=== PATIENT | male | born 1950 | race Caucasian/White ===

== ENCOUNTER 2021-01-07 10:28 | Outpatient (CLI) | payer MEDICARE, SELFPAY ==
--- NOTE | ~2021-01-07 | MR_ITS ---
EXAMINATION: MR knee RT wo con DATE: 01/07/2021 11:49 INDICATION: Right knee pain TECHNIQUE: Magnetic resonance imaging (MRI) of the right knee was performed without intravenous contr ast. Sequences included coronal PD-weighted FSE, coronal PD-weighted FS FSE, sagittal T2-weighted FS E, sagittal PD-weighted FS FSE and axial PD weighted fat saturated FSE. COMPARISON: None. FINDINGS: Medial compartment: Complex medial meniscal tear with a dominant longitudinal horizontal tear plane extending to the infe rior articular surface along the inner third of the body and posterior horn. There is secondary teari ng with frayed irregular periods along the free edge of the lateral aspect of the posterior horn. The re is also appears be a small displaced meniscal flap extending inferiorly into the gutter along the posterior medial margin of the medial tibial plateau. Small region of deep chondral fissuring along t he lateral side of the central portion of the weightbearing medial femoral condyle. Lateral compartment: Tiny radial tear along the free edge at the posterior body of the lateral meniscus. Articular cartila ge is normal. Patellofemoral compartment: Until fissuring involving greater than 50% the cartilage thickness at the patellar apical ridge and a t the medial facet without definitive degenerative subchondral changes. Trochlear cartilage is normal . Ligaments and tendons: Anterior and posterior cruciate ligaments are normal. The fibular collateral ligament complex is norm al. Mild thickening and minimal increased signal of the proximal medial collateral ligament without s urrounding edema consistent with mild scarring related to chronic sprain. Mild distal quadriceps tend inopathy. Patellar tendon is normal. The visualized medial and lateral hamstring tendons as well as t he iliotibial band are normal. Fluid: Physiologic amount of fluid in the joint space. No loose osteochondral bodies identified. Osseous/other: Small low signal intensity bone island at the lateral femoral condyle. Normal marrow signal. No fract ure or pathologic marrow replacing process. IMPRESSION: 1. Complex tear of the body and posterior horn of the medial meniscus. 2. Tiny radial tear along the free edge of the posterior body of the lateral meniscus. 3. 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 4. Mild scarring consistent with chronic sprain of the proximal medial collateral ligament. Reviewed, dictated and finalized at location A. IMPRESSION: 1. Complex tear of the body and posterior horn of the medial meniscus. 2. Tiny radial tear along the free edge of the posterior body of the lateral me niscus. 3. 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 4. Mild scarring consistent with chronic sprain of the proximal medial collater al ligament.
== END 2021-01-07 10:29 | disposition home or self-care (01) ==
LOC: ANHIMG 10:32
PROVIDERS: PCP Family Medicine; Visit Provider Family Medicine
DX: M17.11 Unilateral primary osteoarthritis, right knee (principal); S83.231A Complex tear of medial meniscus, current injury, right knee, initial encounter; X58.XXXA Exposure to other specified factors, initial encounter
CPT/HCPCS: 73721

== ENCOUNTER 2021-07-03 12:03 | Outpatient (CLI) | payer MEDICARE, SELFPAY ==
[2021-07-03 12:30] LABS: Basophils Percent Auto 0.1 % (0.2-1.2); Eosinophils Percent Auto 0.5 % (0-4.4); Hematocrit 44.3 % (42.0-52.0); Hemoglobin 14.9 g/dL (14.0-18.0); Immature Granulocyte Absolute 0.03 K/mm3 (0.00-0.031); Immature Granulocyte Percent A 0.4 % (0-0.5); Lymphocytes Absolute Auto 1.54 K/mm3 (0.9-3.2); Lymphocytes Percent Auto 20.1 % (18.3-44.2); Mean Corpuscular HGB Conc 33.6 g/dl (32-36); Mean Platelet Volume 9.2 fl (7.4-10.4); Monocytes Absolute Auto 0.7 K/mm3 (0.1-0.6); Monocytes Percent Auto 9.1 % (2.6-8.5); Neutrophils Absolute Auto 5.4 K/mm3 (1.3-6.7); Neutrophils Percent Auto 69.8 % (45.5-73.1); Platelet Count Result 198 k/mm3 (150-375); Red Blood Count 4.52 M/mm3 (4.6-6.20); Red Cell Distribution Width 12.4 % (11.5-14.5); White Blood Count 7.7 K/mm3 (4.5-10.0)
[2021-07-03 12:42] LABS: Anion Gap 7 mmol/L (8-16); Blood Urea Nitrogen 25 mg/dL (9-20); Calcium 9.4 mg/dL (8.4-10.2); Carbon Dioxide 29 mmol/L (22-30); Chloride 101 mmol/L (98-107); Estimated Glomerular Filt Rate > 60; Glucose 119 mg/dL (65-110); Potassium 5.6 mmol/L (3.4-5.0); Sodium 137 mmol/L (137-145)
== END 2021-07-03 12:04 | disposition home or self-care (01) ==
LOC: ANHLAB 12:05
PROVIDERS: PCP Family Medicine; Visit Provider Nurse Practitioner Family
DX: R55 Syncope and collapse (principal)
CPT/HCPCS: 36415; 80048; 85025

== ENCOUNTER 2021-07-04 01:27 | Day surgery (SDC) | payer MEDICARE, SELFPAY ==
--- NOTE | 2021-06-20 14:47 | PC.NURSE ---
Report to the Outpatient Waiting Room, entrance under the green pavilion located off [facility], at time _0830 on date _07/04/21 . OR Time: _1030 . - You and your visitor will be asked a series of questions to screen for COVID 19 for your protection. - A mask is required within the hospital. Preoperative COVID Testing Requirements: No COVID Test needed if: (proof is required; if not received patient will have Rapid Test prior to entry) - Patient has received COVID Vaccine at least 14 days prior to procedure date or - Patient has positive COVID test result within last 90 days of surgery date. COVID Test needed if above criteria is not met If not COVID vaccinated a COVID test must be conducted within 72 hours of surgery and patient is asked to isolate self from time of testing until procedure. You will go to the [facility] for your COVID testing. The [facility] site is located at the corner of [address] [facility]. You will only be called if COVID results are positive and your surgeon may reschedule your elective surgery date. Patients may have clear liquids (water, carbonated beverages, clear teas, apple juice) until 3 hours prior to surgery with a maximum of 20 ounces. - No food from midnight until time of surgery - Infants may have breast milk until 4 hours before surgery, infant formula 6 hours prior to surgery. - Children will be allowed to drink immediately following surgery. If applicable, please bring a bottle or sippy cup to assist with drinking. Juice, water, soda, and popsicles are readily available. For infants on formula, please bring formula the day of surgery. Pacifiers are allowed. Take the following medications with a SIP of water the morning of surgery: ___NONE Medications to discontinue per physician ___MELOXICAM 7 DAYS PRE OP Date to take last dose_06/26/21 Please no make-up, nail mohawk, hairspray, perfume, deodorant, or body powder the day of surgery. No jewelry (including any body piercings) or valuables the day of surgery, leave them at home. Please take a shower or bath the night before, or the morning of, surgery with an antibacterial soap. Wear comfortable, loose fitting clothing. Children are encouraged to wear pajamas. - Jewelry must be removed prior to entering the operating room. Rings and piercings that are not removed may be cut off. - The hospital will not accept responsibility for valuables. - Please leave all valuables, including medications, at home the day of surgery. If you are going home after surgery, a licensed lumber stacker driver must drive you home. - NO public transportation without another adult. - We recommend that an adult stay with you for 24 hours following discharge. - We also recommend that you do not drive, make important decision, drink alcoholic beverages, or take any drugs that were not prescribed by your health care provider for at least 24 hours after your discharge time. For Pediatric surgeries, we recommend two adults accompany the child home (only one inside the building at this time). One visitor will be allowed to accompany the patient into the hospital. Patients visitor will be instructed to remain with patient at all times or leave the building. We will allow the visitor to come back to the postoperative area when patient is ready. Follow any additional instructions given to you from your surgeon. Telephone instructions given to __PATIENT and asked if any additional questions and then verbalized understanding. Patient advised to call surgeon office or pre surgery nurse liaison [phone] if any additional questions. Report to the Outpatient Waiting Room, entrance under the green pavilion located off [facility], at time on date . OR Time: . - You and your visitor will be asked a series of questions to scr
[2021-06-20 14:52] VITALS: BMI 23.1
--- NOTE | 2021-07-03 12:53 | WPDANESEPPF ---
Anes - Initial Pre Proc Eval Procedure: Operation Date: 07/04/21 10:30 Proposed Procedures p Right Knee Arthroscopic Partial Medial Meniscectomy - Greg Tom MD Date/Time: 07/03/21 12:53 Surgeon: Greg Tom MD Pre Op Diagnosis: medial & lateral meniscus tears right knee Patient Data Age: 71 Gender: M Height: 1.91 m Weight: 83.95 kg Allergies Allergy/AdvReac Type Severity Reaction Status Date / Time No Known Allergies Allergy Verified 07/03/21 10:35 Home Medications Medication Instructions Recorded Confirmed Type sildenafil 100 mg tablet 100 mg PO DAILY PRN #10 tablet 02/28/20 07/03/21 Rx meloxicam 15 mg tablet See Rx Instructions .ROUTE 05/01/21 07/03/21 Rx .COMPLEX #30 tablet cetirizine 10 mg tablet 10 mg PO DAILY PRN 05/03/21 07/03/21 History tramadol 50 mg tablet 50 mg PO Q6H PRN 07/03/21 07/03/21 History Patient hx anesthesia problems: none Family hx anesthesia problems: none Results Review: All pre-operative results and documents have been reviewed as part of the pre-operative evaluation. [facility] Past Medical History Medical History Abnormal MRI, knee BMI 23.0-23.9, adult Degenerative lumbar disc Erectile dysfunction Hand pain Hemorrhoids History of stress test (~1994) Left shoulder pain Right medial knee pain Screening for lipid disorders Screening for prostate cancer Skin lesions, generalized Tear of lateral meniscus of left knee, current Tear of medial meniscus of right knee, current Surgical History Surgical History H/O removal of cyst testicular cyst History of repair of left rotator cuff (~04/22/13) Family History Family History Father Family history of premature coronary heart disease Grandparent Carcinoma of colon Mother Congestive heart failure Other Cerebrovascular accident Social History Social History Alcohol intake: never Substance use: never Substance use type: does not use Living arrangements: with family Additional living arrangements comments: lives with Additional occupation/education comments: [employer] Spiritual care concerns: No Anes - Eval Final PreProcedure Day of Procedure 07/03/21 12:53 Patient weight: normal Heart: regular rate and rhythm Lungs: clear to auscultation and normal air movement Airway: Mallampati scale class II Neurological: alert and oriented Last oral intake: >/= 8 hours ASA classification: II Emergent: no Anesthetic plan: proceed Anesthesia type and monitoring: general LMA Results Review: All pre-operative results and documents have been reviewed as part of the pre-operative evaluation. Informed Consent: The patient's anesthetic plan and its attendant risks and benefits were discussed with the patient/family/POA. Questions were solicited and answers provided to the satisfaction of the patient/family/POA.
[2021-07-04] VITALS (10 sets, daily range): BP systolic 108–148; BP diastolic 68–94; PULSE 61–85; RESP 12–19; TEMP 36.3; O2SAT 98–100
[2021-07-04] MEDS: LACTATED RINGERS 1,000 ML 30 ML IV CONT (09:19)
[2021-07-04] MEDS: ACETAMINOPHEN 500 MG TABLET 1000 MG PO (09:19)
[2021-07-04] MEDS: KETOROLAC 15 MG/ML VIAL (*BKC) IV PUSH (09:20)
--- NOTE | 2021-07-04 10:25 | WPDHPUPDATE1 ---
History and Physical Update Update Date/Time: 07/04/21 10:25 Syncopal episode due to Tramadol and dehydration. EKG normal. History and Physical has been reviewed, including an updated exam of the patient. There are NO changes in the patient's condition. Risks, benefits, and alternatives have been discussed and questions answered. Patient agrees to proceed with procedure.
[2021-07-04] MEDS: ceFAZolin 2 GM/D5W 50 ML 2 GM/50 ML BAG IVPB (10:29)
[2021-07-04] MEDS: BUPIVACAINE/EPINEPHRINE 0.25% 10 ML VIAL 30 ML INFILTRATE (10:42)
--- NOTE | 2021-07-04 17:40 | W.PM.PROC2 ---
Procedure Note - Detailed Date of Procedure 07/04/21 Pre-op Diagnosis medial & lateral meniscus tears right knee Post-op Diagnosis Other (Medial meniscus tear, right knee.) Procedure Performed Arthroscopic partial medial meniscectomy Surgeon Greg Tom MD Multicraft Operator Mee Ruiz PA-C Anesthesia General Findings Mild degenerative changes primarily at the patellofemoral joint. Mild medial compartment disease. Extensive complex tearing of the meniscus with several loose flaps. The lateral meniscus appeared essentially normal. The lateral joint was also healthy despite some early degeneration on the tibia. Medial femur chondromalacia grade 1, medial tibia grade 1. Lateral femur chondromalacia grade 0, lateral tibia grade 1. Patellar grade 2/3, trochlea grade 2. Description of Procedure The patient was identified and the surgical site confirmed and signed in the preoperative holding area. Antibiotics were started per protocol. She was brought to the operative room and transferred to the OR table. A general anesthetic was administered. Supine position with the operative lower extremity position in the leg jeffries after placement of a well padded tourniquet. The leg support was lowered and the contralateral limb was supported with a soft bolster. The knee was prepped and draped in the usual sterile fashion. A time-out was performed. The portal sites were marked and infiltrated with 0.5% Marcaine 20 mL. The limb was exsanguinated and the tourniquet inflated to 300 mL Hg. Standard inferolateral and inferomedial portals were established. Inflow was obtained with the saline pump. The camera was introduced. Diagnostic inspection of the joint was accomplished. The meniscus was debrided with the arthroscopic shaver and punches until stable. The arthroscopic instruments were removed. The tourniquet released and wounds closed with subcutaneous 4-0 Monocryl absorbable suture. Steri strips and a sterile dressing were applied. A light elastic wrap was placed. The patient was extubated and brought to the recovery room in stable condition. Estimated Blood Loss 5 Tourniquet Time 12 Drains No Complications No immediate complications Condition Stable Disposition PACU [facility] Billing Surgery - Charge Forward: Surgery Billing
== END 2021-07-04 13:25 | disposition home or self-care (01) ==
PROVIDERS: PCP Family Medicine; Visit Provider Orthopaedic Surgery
PROC: (CPT 29870; principal; 2021-07-04 10:30)
DX: M23.331 Other meniscus derangements, other medial meniscus, right knee (principal); M94.261 Chondromalacia, right knee
CPT/HCPCS: 29881; A9270; J0690; J1100; J1885; J2405; J2704; J3010; J7120

== ENCOUNTER 2021-07-10 11:19 | Outpatient (CLI) | payer MEDICARE, SELFPAY ==
[2021-07-10 11:48] LABS: Anion Gap 3 mmol/L (8-16); Blood Urea Nitrogen 20 mg/dL (9-20); Calcium 9.1 mg/dL (8.4-10.2); Carbon Dioxide 31 mmol/L (22-30); Chloride 104 mmol/L (98-107); Estimated Glomerular Filt Rate > 60; Glucose 115 mg/dL (65-110); Potassium 4.5 mmol/L (3.4-5.0); Sodium 138 mmol/L (137-145)
== END 2021-07-10 11:20 | disposition home or self-care (01) ==
LOC: ANHLAB 11:21
PROVIDERS: PCP Family Medicine; Visit Provider Nurse Practitioner Family
DX: E87.5 Hyperkalemia (principal)
CPT/HCPCS: 36415; 80048

== ENCOUNTER 2022-01-16 08:21 | Emergency (ER) | payer MEDICARE, SELFPAY ==
--- NOTE | 2022-01-16 08:27 | ED.UPPEXIN ---
HPI - Extremity Injury (Upper) General Stated Complaint: left side pain chest/shoulder Related Data Home Medications Medication Instructions Recorded Confirmed cetirizine 10 mg tablet (Zyrtec) 10 mg PO DAILY PRN Allergy Symptoms 05/03/21 08/13/21 Allergies Allergy/AdvReac Type Severity Reaction Status Date / Time No Known Allergies Allergy Verified 08/12/21 12:02 [facility] Past Medical History Medical History Abnormal MRI, knee BMI 23.0-23.9, adult Degenerative lumbar disc Erectile dysfunction Hand pain Hemorrhoids History of stress test (~1994) Left shoulder pain Right medial knee pain Screening for lipid disorders Screening for prostate cancer Skin lesions, generalized Tear of lateral meniscus of left knee, current Tear of medial meniscus of right knee, current Surgical History Surgical History H/O removal of cyst testicular cyst History of repair of left rotator cuff (~04/22/13) Family History Family History Father Family history of premature coronary heart disease Grandparent Carcinoma of colon Mother Congestive heart failure Other Cerebrovascular accident Social History Social History Alcohol intake: never Substance use: never Substance use type: does not use Additional living arrangements comments: lives with Additional occupation/education comments: [employer] Spiritual care concerns: No Discharge Plan Discharge Prescriptions: No Action sildenafil 100 mg tablet 100 mg PO DAILY PRN (Reason: sexual activity) Qty: 10 0RF Rx Instructions: administer 30 minutes to 4 hours before activity cetirizine [Zyrtec] 10 mg tablet 10 mg PO DAILY PRN (Reason: Allergy Symptoms) meloxicam 15 mg tablet See Rx Instructions .ROUTE .COMPLEX Qty: 30 1RF Dose Instruction: TAKE 1 TABLET BY MOUTH EVERY DAY Rx Instructions: TAKE 1 TABLET BY MOUTH EVERY DAY Paxlovid (EUA) 300 mg (150 mg x 2)-100 mg tablets,dose pack See Rx Instructions PO .COMPLEX Qty: 30 0RF Rx Instructions: take TWO 150 mg tablets of nirmatrelvir with ONE 100 mg tablet of ritonavir twice daily for 5 days PO Follow-up/Referrals: Kayode Spence MD [Primary Care Provider] -
[2022-01-16 08:41] VITALS: BP 140/108; PULSE 67; RESP 16; TEMP 35.7; O2SAT 99
--- NOTE | 2022-01-16 08:42 | ECG_ITS ---
Measurements Intervals [place] Rate: 65 P: 71 MS: 185 QRS: 12 QRSD: 98 T: 50 QT: 396 QTc: 412 Interpretive Statements SINUS RHYTHM LOW QRS VOLTAGE IN PRECORDIAL LEADS BORDERLINE ECG COMPARED TO ECG 01/16/2022 08:39:16 NO SIGNIFICANT CHANGES Electronically Signed On 01-16-2022 11:57:56 METAL SMELTER by Juancarlos Graff D.O.
--- NOTE | 2022-01-16 08:53 | ED.CHESTPAIN ---
HPI - Chest Pain General Chief Complaint: Chest Pain Stated Complaint: left side pain chest/shoulder Time Seen by Provider: 01/16/22 08:55 Source: patient Mode of arrival: ambulatory Limitations: no limitations History of Present Illness HPI narrative: Clifford is a 71-year-old male patient presenting to clinic today with complaints of left-sided chest discomfort and left shoulder pain. He reports that he just had COVID on January 05. He denies any shortness of breath at this time. He denies any fever or chills. No cardiac history reported. States the pain is worse with movement of his left arm and taking a deep breath. He denies any injury Related Data Home Medications Medication Instructions Recorded Confirmed cetirizine 10 mg tablet (Zyrtec) 10 mg PO DAILY PRN Allergy Symptoms 05/03/21 08/13/21 Allergies Allergy/AdvReac Type Severity Reaction Status Date / Time No Known Allergies Allergy Verified 08/12/21 12:02 Review of Systems Review of Systems: Pertinent positives per HPI. Patient denies any fever, chills, rash, headache, visual changes, dizziness, cough, runny nose, sore throat, shortness of breath, palpitations, nausea, vomiting, diarrhea, constipation, abdominal pain, or any urinary issues. [facility] Past Medical History Medical History Abnormal MRI, knee BMI 23.0-23.9, adult Degenerative lumbar disc Erectile dysfunction Hand pain Hemorrhoids History of stress test (~1994) Left shoulder pain Right medial knee pain Screening for lipid disorders Screening for prostate cancer Skin lesions, generalized Tear of lateral meniscus of left knee, current Tear of medial meniscus of right knee, current Surgical History Surgical History H/O removal of cyst testicular cyst History of repair of left rotator cuff (~04/22/13) Family History Family History Father Family history of premature coronary heart disease Grandparent Carcinoma of colon Mother Congestive heart failure Other Cerebrovascular accident Social History Social History Alcohol intake: never Substance use: never Substance use type: does not use Additional living arrangements comments: lives with Additional occupation/education comments: mir Spiritual care concerns: No Comments At the time of my signature, I reviewed and agree with the nursing past medical, surgical, social, and family history. There is no relevant family history pertinent to the patient complaint. Exam Narrative: General: Well-developed, well nourished, in no apparent distress Head: Normocephalic, atraumatic. Chest: Mild tenderness to palpation over the left chest wall, pain worsens with movement of the left shoulder and taking a deep breath. Even rise and fall of chest wall, no bruising or swelling noted Cardio: Regular rate and rhythm, s1 and s2 normal, no murmur appreciated. Resp: Clear to auscultation bilaterally, no rhonchi, rales, wheezing or rubs. Extremities: No deformity, no edema, no cyanosis, capillary refill less than 2 seconds, peripheral pulses palpable and strong. Integumentary: [place], warm, and dry, intact without lesion, no rashes. Course Course Emergency Course: Portions of this record may have been created with voice recognition software. Level of Care: Express Care Visit Vital Signs Vital signs: Vital Signs Temperature 35.7 C L 01/16/22 08:41 Pulse Rate 67 01/16/22 08:41 Respiratory Rate 16 01/16/22 08:41 Blood Pressure 140/108 H 01/16/22 08:41 Pulse Oximetry 99 01/16/22 08:41 Oxygen Delivery Room Air 01/16/22 08:41 Temperature 35.7 C L 01/16/22 08:41 Pulse Rate 67 01/16/22 08:41 Respiratory Rate 16 01/16/22 08:41 Blood Pressu
== END 2022-01-16 09:02 | disposition short-term general hospital (02) ==
PROVIDERS: Emergency Provider Nurse Practitioner Family; PCP Family Medicine
DX: R07.89 Other chest pain (principal); M25.512 Pain in left shoulder; Z87.891 Personal history of nicotine dependence
CPT/HCPCS: 93005; 99213; G0463

== ENCOUNTER 2022-01-16 09:18 | Emergency (ER) | payer MEDICARE, SELFPAY ==
[2022-01-16] VITALS (11 sets, daily range): BP systolic 139–162; BP diastolic 74–88; PULSE 66–84; RESP 12–20; TEMP 36.6; O2SAT 96–100
--- NOTE | ~2022-01-16 | XR_ITS ---
EXAMINATION: XR chest 2V DATE: 01/16/2022 10:36 INDICATION: Left-sided chest pain TECHNIQUE: PA and lateral views of the chest are obtained. COMPARISON: 12/21/2012 FINDINGS: There are minimal airspace opacities of the left lower lobe. No pleural effusion or pneumot horax. The cardiomediastinal silhouette is normal. There is moderate thoracic spondylosis. IMPRESSION: 1. Minimal airspace opacity of the left lower lobe, consistent with atelectasis versus pneumonia. Reviewed, dictated and finalized at location B. CAL MANAGEMENT SPECIALIST
--- NOTE | 2022-01-16 09:31 | ECG_ITS ---
Measurements Intervals [place] Rate: 70 P: 43 SC: 172 QRS: 6 QRSD: 85 T: 48 QT: 386 QTc: 418 Interpretive Statements SINUS RHYTHM LOW QRS VOLTAGE IN PRECORDIAL LEADS BORDERLINE ECG NO PREVIOUS ECG AVAILABLE FOR COMPARISON Electronically Signed On 01-16-2022 11:56:45 INDUSTRIAL PSYCHOLOGY TEACHER by Juancarlos Graff D.O.
[2022-01-16 09:50] LABS: Basophils Percent Auto 0.1 % (0.2-1.2); Eosinophils Absolute Auto 0.2 K/mm3 (0-0.3); Eosinophils Percent Auto 2.6 % (0-4.4); Immature Granulocyte Absolute 0.02 K/mm3 (0.00-0.031); Immature Granulocyte Percent A 0.3 % (0-0.5); Lymphocytes Absolute Auto 2.18 K/mm3 (0.9-3.2); Lymphocytes Percent Auto 28.7 % (18.3-44.2); Mean Corpuscular HGB Conc 34.9 g/dl (32-36); Mean Corpuscular Hemoglobin 33.3 pg (26-34); Mean Corpuscular Volume 95.3 fl (80-100); Monocytes Absolute Auto 0.6 K/mm3 (0.1-0.6); Monocytes Percent Auto 8.3 % (2.6-8.5); Neutrophils Absolute Auto 4.6 K/mm3 (1.3-6.7); Platelet Count Result 227 k/mm3 (150-375); Red Blood Count 4.51 M/mm3 (4.6-6.20); Red Cell Distribution Width 12.3 % (11.5-14.5); White Blood Count 7.6 K/mm3 (4.5-10.0)
[2022-01-16 10:02] LABS: Partial Thromboplastin Time 28.7 SECONDS (22.3-36.8)
[2022-01-16 10:04] LABS: Alanine Aminotransferase 49 U/L (6-50); Albumin Level 4.6 g/dL (3.5-5.1); Alkaline Phosphatase 94 U/L (38-126); Anion Gap 14 mmol/L (8-16); Aspartate Amino Transferase 44 U/L (17-59); Bilirubin,Total 0.5 mg/dL (0.2-1.3); Blood Urea Nitrogen 20 mg/dL (9-20); Calcium 8.8 mg/dL (8.4-10.2); Carbon Dioxide 25 mmol/L (22-30); Chloride 102 mmol/L (98-107); Estimated CRCL calculation 76 ml/min; Estimated Glomerular Filt Rate > 60; Glucose 98 mg/dL (65-110); Lipase 66 U/L (23-300); Potassium 3.8 mmol/L (3.4-5.0); Sodium 141 mmol/L (137-145)
[2022-01-16 10:16] LABS: Troponin I < 0.012 ng/mL (0.000-0.034)
--- NOTE | 2022-01-16 11:22 | ED.CHESTPAIN ---
HPI - Chest Pain General Chief Complaint: Chest Pain Stated Complaint: cp Time Seen by Provider: 01/16/22 10:55 Source: patient History of Present Illness HPI narrative: Patient is 71 years old white male, drove himself to the emergency room, lives with his at home complaining of constant left upper chest and left upper back pain started 36 hours ago. Gets better laying down still, worse with stretching his neck or turning his neck to 1 side or the other, coughing and certain position. He denies any fever, chills, nausea, vomiting, shortness of breath or having similar symptoms. Patient tested positive for COVID on January 05 which is 12 days ago and he tested negative few days ago. Patient does not have any medical disease, does not take medicine at home, does not smoke or drink or uses drugs, on meloxicam for arthritis, father had a heart attack at 54 years old with comorbidities Related Data Home Medications Medication Instructions Recorded Confirmed cetirizine 10 mg tablet (Zyrtec) 10 mg PO DAILY PRN Allergy Symptoms 05/03/21 08/13/21 Allergies Allergy/AdvReac Type Severity Reaction Status Date / Time No Known Allergies Allergy Verified 01/16/22 09:31 Review of Systems Review of Systems: All systems reviewed & are unremarkable except as noted in HPI and below PMFSH Past Medical History Medical History Abnormal MRI, knee BMI 23.0-23.9, adult Degenerative lumbar disc Erectile dysfunction Hand pain Hemorrhoids History of stress test (~1994) Left shoulder pain Right medial knee pain Screening for lipid disorders Screening for prostate cancer Skin lesions, generalized Tear of lateral meniscus of left knee, current Tear of medial meniscus of right knee, current Surgical History Surgical History H/O removal of cyst testicular cyst History of repair of left rotator cuff (~04/22/13) Family History Family History Father Family history of premature coronary heart disease Grandparent Carcinoma of colon Mother Congestive heart failure Other Cerebrovascular accident Social History Social History Alcohol intake: never Substance use: never Substance use type: does not use Additional living arrangements comments: lives with Additional occupation/education comments: mir Spiritual care concerns: No Exam Narrative: General appearance: Well-developed, well-nourished Skin: Normal color Head: Normocephalic, nontraumatic Eyes: Clear conjunctiva ENT: Oropharynx normal, ears normal, nose normal Neck: Supple, nontender Chest and respiratory: Airway patent, no respiratory distress, no accessory muscle use Heart: Regular rate/rhythm Abdomen: Soft, nontender, no organomegaly, quiet bowel sounds Vascular: Normal peripheral pulses, normal capillary refill. Musculoskeletal: Normal range of motion, nontender back Neurologic: Alert and oriented ?3, SCIENCE AND OPERATIONS OFFICER is normal as tested, no gross motor deficit Course Course Emergency Course: Patient presents with left upper back and left upper chest pain worse with certain movement, musculoskeletal is my concern. Oxygen level on room air is 100%, chest x-ray showed atelectasis versus pneumonia at the base of the lung, and planning to discharge him on Z-Rahul just in case especially patient had COVID infection 13 days ago. Last COVID test was negative few days ago, patient is fully vaccinated and boosted for COVID-19. Cardiac score is 3, pa
== END 2022-01-16 12:10 | disposition home or self-care (01) ==
PROVIDERS: Emergency Provider Emergency Medicine; PCP Family Medicine
DX: J18.9 Pneumonia, unspecified organism (principal); R07.9 Chest pain, unspecified; M54.6 Pain in thoracic spine; M19.90 Unspecified osteoarthritis, unspecified site; Z86.16 Personal history of COVID-19; R94.31 Abnormal electrocardiogram [ECG] [EKG]
CPT/HCPCS: 36415; 71046; 80053; 83690; 84484; 85025; 85610; 85730; 93005; 99284

== ENCOUNTER 2023-04-17 07:58 | Outpatient (CLI) | payer MEDICARE, SELFPAY ==
--- NOTE | 2023-04-17 08:38 | ECG_ITS ---
Measurements Intervals [place] Rate: 73 P: 81 DE: 205 QRS: -10 QRSD: 101 T: 46 QT: 366 QTc: 405 Interpretive Statements SINUS RHYTHM LOW QRS VOLTAGE BORDERLINE ECG COMPARED TO ECG 01/16/2022 09:37:16 NO SIGNIFICANT CHANGES Electronically Signed On 04-17-2023 15:31:17 DOCTOR OF NATUROPATHIC MEDICINE by Mansoor Resendiz M.D.
[2023-04-17 09:03] LABS: Basophils Percent Auto 0.2 % (0.2-1.2); Eosinophils Absolute Auto 0.4 K/mm3 (0-0.3); Eosinophils Percent Auto 6.6 % (0-4.4); Hematocrit 41.6 % (42.0-52.0); Hemoglobin 13.9 g/dL (14.0-18.0); Immature Granulocyte Absolute 0.01 K/mm3 (0.00-0.031); Immature Granulocyte Percent A 0.2 % (0-0.5); Lymphocytes Absolute Auto 2.37 K/mm3 (0.9-3.2); Lymphocytes Percent Auto 39.3 % (18.3-44.2); Mean Corpuscular HGB Conc 33.4 g/dl (32-36); Mean Corpuscular Hemoglobin 32.5 pg (26-34); Mean Corpuscular Volume 97.2 fl (80-100); Mean Platelet Volume 9.2 fl (7.4-10.4); Monocytes Absolute Auto 0.6 K/mm3 (0.1-0.6); Monocytes Percent Auto 9.3 % (2.6-8.5); Neutrophils Absolute Auto 2.7 K/mm3 (1.3-6.7); Neutrophils Percent Auto 44.4 % (45.5-73.1); Platelet Count Result 216 k/mm3 (150-375); Red Blood Count 4.28 M/mm3 (4.6-6.20); Red Cell Distribution Width 12.7 % (11.5-14.5)
== END 2023-04-17 07:59 | disposition home or self-care (01) ==
LOC: ANHSURGERY 08:00
PROVIDERS: PCP Family Medicine; Visit Provider Orthopaedic Surgery
DX: M17.12 Unilateral primary osteoarthritis, left knee (principal); Z01.818 Encounter for other preprocedural examination; R94.31 Abnormal electrocardiogram [ECG] [EKG]
CPT/HCPCS: 36415; 85025; 93005

== ENCOUNTER 2023-05-07 00:07 | Day surgery (SDC) | payer MEDICARE, SELFPAY ==
[2023-04-17 08:05] VITALS: BMI 25.0
--- NOTE | 2023-04-17 08:23 | PC.NURSE ---
Report to the Outpatient Waiting Room, entrance under the green pavilion located off [facility], at time __0830 on date _05/07/23 . Planned Procedure Time: ___1030 . Time changes happen often and if your time is changed the preop area will call you the afternoon before. - You and your visitor will be asked to self-screen and do not enter if you have any COVID symptoms. - A mask is optional within the hospital at this time. Patients may have clear liquids (water, carbonated beverages, clear teas, apple juice) until 3 hours prior to surgery( 7:30 AM ) with a maximum of 20 ounces. - No food from midnight until time of surgery - Infants may have breast milk until 4 hours before surgery, infant formula 6 hours prior to surgery. - Children will be allowed to drink immediately following surgery. If applicable, please bring a bottle or sippy cup to assist with drinking. Juice, water, soda, and popsicles are readily available. For infants on formula, please bring formula the day of surgery. Pacifiers are allowed. Take the following medications with a SIP of water the morning of surgery: __NONE DO NOT STOP ANY OF YOUR OTHER PRESCRIPTION MEDICATIONS PRIOR TO SURGERY ?EXCEPT THE FOLLOWING Medications to discontinue per physician __HOLD MELOXICAM 7 DAYS PRE OP PER DR HALL .LAST DOSE 04/29/23 HOLD ALL VITAMINS 3 DAYS 3 PRE OP.LAST DOSE 05/03/23. MAY TAKE TYLENOL IF NEEDED FOR PAIN Please no make-up, nail sami, hairspray, perfume, deodorant, or body powder the day of surgery. No jewelry (including any body piercings) or valuables the day of surgery, leave them at home. Please take a shower or bath the night before, or the morning of, surgery with an antibacterial soap. Wear comfortable, loose fitting clothing. Children are encouraged to wear pajamas. - Jewelry must be removed prior to entering the operating room. Rings and piercings that are not removed may be cut off. - The hospital will not accept responsibility for valuables. - Please leave all valuables, including medications, at home the day of surgery. If you are going home after surgery, a licensed telephone directory distributor driver must drive you home. - NO public transportation without another adult if you receive anesthesia. - We recommend that an adult stay with you for 24 hours following discharge. - We also recommend that you do not drive, make important decision, drink alcoholic beverages, or take any drugs that were not prescribed by your health care provider for at least 24 hours after your discharge time. Follow any additional instructions given to you from your surgeon. If you or anyone in your household have experienced Covid symptoms in the past week, please notify your surgeon or the nurse liaison at the phone number below for possible testing. VERBAL AND WRITTEN instructions given to __PATIENT and asked if any additional questions and then verbalized understanding. Patient advised to call surgeon office or pre surgery nurse liaison [phone] if any additional questions.
[2023-04-17 08:34] VITALS: BP 151/84; PULSE 84; RESP 18; TEMP 36.7; O2SAT 98
[2023-05-07] VITALS (12 sets, daily range): BP systolic 106–146; BP diastolic 55–89; PULSE 80–95; RESP 10–18; TEMP 36.2–36.8; O2SAT 95–100
--- NOTE | ~2023-05-07 | XR_ITS ---
EXAMINATION: KNEE ONE/TWO VIEW-RIGHT DATE: 05/07/2023 12:00 INDICATION: Postoperative evaluation following left knee medial unicompartmental arthroplasty TECHNIQUE: Anteroposterior and lateral views of the left knee were obtained. COMPARISON: 01/19/2023 FINDINGS: Left knee medial unicompartmental arthroplasty appears well seated and in near anatomic alignment. N o fractures identified. Expected postoperative subcutaneous and intra-articular gas. IMPRESSION: 1. Left knee medial unicompartmental arthroplasty, negative for postoperative purposes. Reviewed, dictated and finalized at location L. ILE TECH IMPRESSION: 1. Left knee medial unicompartmental arthroplasty, negative for postoperative p urposes.
--- NOTE | 2023-05-07 09:10 | WPDHPUPDATE1 ---
History and Physical Update Update Date/Time: 05/07/23 09:10 History and Physical has been reviewed, including an updated exam of the patient. There are NO changes in the patient's condition. Risks, benefits, and alternatives have been discussed and questions answered. Patient agrees to proceed with procedure.
[2023-05-07] MEDS: LACTATED RINGERS 1,000 ML 30 ML IV CONT ×2 (09:15→11:49)
[2023-05-07] MEDS: ACETAMINOPHEN 500 MG TABLET 1000 MG PO (09:17)
[2023-05-07] MEDS: TRANEXAMIC ACID 1,000MG/ISO100 1,000 MG/100 ML BAG 200 MG IVPB (09:17)
--- NOTE | 2023-05-07 09:20 | WPDANESEPPF ---
Anes - Initial Pre Proc Eval Procedure: Operation Date: 05/07/23 10:30 Proposed Procedures p Left Partial Knee Arthroplasty - Greg Tom MD Date/Time: 05/07/23 09:20 Surgeon: Greg Tom MD Pre Op Diagnosis: Prim O A Lt Knee Patient Data Age: 73 Gender: M Height: 1.85 m Weight: 84.1 kg Last Vital Signs Temp 36.7 C 04/17/23 08:34 Pulse 84 04/17/23 08:34 Resp 18 04/17/23 08:34 BP 151/84 H 04/17/23 08:34 Pulse Ox 98 04/17/23 08:34 O2 Del Method Room Air 04/17/23 08:34 Allergies Allergy/AdvReac Type Severity Reaction Status Date / Time tramadol AdvReac Fainting Verified 05/07/23 08:48 Home Medications Medication Instructions Recorded Confirmed Type sildenafil 100 mg tablet 100 mg PO DAILY PRN sexual 02/28/20 05/07/23 Rx activity #10 tabs cetirizine 10 mg tablet (Zyrtec) 10 mg PO DAILY PRN Allergy Symptoms 05/03/21 05/07/23 History meloxicam 15 mg tablet 15 mg PO DAILY #30 tabs 02/23/23 05/07/23 Rx qfabbuzr-px-uwxso 300 mcg-K 60 1 tablet PO DAILY 04/17/23 05/07/23 History mcg-lycop 600 mcg-lutein 300 mcg tablet ([facility] Men 50 Plus) omeprazole magnesium 20 mg 20 mg PO PRN PRN Heartburn 04/17/23 05/07/23 History tablet,delayed release (Prilosec OTC) aspirin 81 mg tablet,delayed 81 mg PO BID 14 days #28 tabs 05/07/23 Rx release hydrocodone 5 mg-acetaminophen 325 1 - 2 tablet PO Q4-6H PRN pain #30 05/07/23 Rx mg tablet tabs prednisone 5 mg tablet 5 mg PO DAILY 3 weeks #21 tabs 05/07/23 Rx Patient hx anesthesia problems: none Family hx anesthesia problems: none Results Review: All pre-operative results and documents have been reviewed as part of the pre-operative evaluation. [facility] Past Medical History Medical History Abnormal MRI, knee BMI 23.0-23.9, adult Degenerative lumbar disc Erectile dysfunction Hand pain Hemorrhoids History of stress test (~1994) Left shoulder pain Right medial knee pain Screening for lipid disorders Screening for prostate cancer Skin lesions, generalized Tear of lateral meniscus of left knee, current Tear of medial meniscus of right knee, current Surgical History Surgical History H/O removal of cyst testicular cyst History of repair of left rotator cuff (~04/22/13) Hx of right knee surgery (~07/04/21) Rt pmm Family History Family History Father Family history of premature coronary heart disease Grandparent Carcinoma of colon Mother Congestive heart failure Other Cerebrovascular accident Social History Social History Smoking status: Never smoker Alcohol intake: never Substance use: never Substance use type: does not use Do You Feel Safe in your Home?: Yes Lack of Transportation: No Lack of Food: Never True Current Housing: I Have Housing Concerned About Future Housing: No Difficulty Paying Gas/Electric Bills: No Difficulty Paying for Meds: No Currently Unemployed: No Education: Trade/Vocational Certificate Difficulty w/ Childcare or Family Care: No Living arrangements: with family Additional living arrangements comments: lives with 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
[2023-05-07] MEDS: ceFAZolin 2 GM/D5W 50 ML 2 GM/50 ML BAG IVPB (10:03)
[2023-05-07] MEDS: SODIUM CHLORIDE 0.9% IV 37.7 ML, MORPHINE SULFATE INJ (*CRX) 2 MG, ROPivacaine HCL 1% 2... INFILTRATE (10:29)
--- NOTE | 2023-05-07 11:35 | W.PM.PROC2 ---
Procedure Note - Detailed Date of Procedure 05/07/23 Pre-op Diagnosis Prim O A Lt Knee Post-op Diagnosis Same Procedure Performed Partial knee arthroplasty, left knee, medial compartment. Surgeon Greg Tom MD Patient Companion Mee Ruiz PA-C Anesthesia General Findings Lateral compartment and ACL normal. No significant patellofemoral disease. Marked medial tibial bone loss and pseudolaxity. Nicely corrected with the medial partial knee. Description of Procedure The patient was given a general anesthetic. Preoperative antibiotics were given. The knee was prepped and draped in the usual sterile fashion. A longitudinal incision was created along the medial aspect of the patellar tendon. A minimally invasive optimized mid vastus approach was completed. No medial release was taken. The external alignment guide was used to cut the tibia with anatomic posterior slope. A 4 millimeter resection was taken. The spacer block technique was utilized to measure flexion and extension gaps after the osteophytes were removed. The difference was used to calculate the distal resection. The distal cutting block was utilized to cut the distal femur. The AP and chamfer block was utilized for this last cuts. The femur and tibia were sized. Range of motion and gap balancing was assessed. This was tested with the 1.5 millimeter spacer. The bony surfaces were cleaned with lavaged. Lug holes were drilled. The real components were cemented into position. Excess cement was carefully removed. The tourniquet was released. Meticulous hemostasis was maintained. The wound was closed with interrupted 1 Vicryl suture followed by a running 0 Quill suture and 2-0 Quill suture. Steri-Strips are placed in the skin the patient was extubated and brought to recovery room in stable condition. There were no complications. Physician clerical dentist assistant, Mee Ruiz PA-C, required for surgery; including patient positioning, draping, tissue retraction, maintaining instrument position, cement removal, wound closure, and dressing placement. Implants [employer] system femur size 4, tibia size 5, 9 mm polyethylene insert . One batch Simplex antibiotic cement. Estimated Blood Loss 20 Drains No Pathology None sent Complications No immediate complications Condition Stable Disposition PACU [facility] Billing Surgery - Charge Forward: Surgery Billing
== END 2023-05-07 15:25 | disposition home or self-care (01) ==
PROVIDERS: PCP Family Medicine; Visit Provider Orthopaedic Surgery
PROC: (CPT 27446; principal; 2023-05-07 10:30)
DX: M17.12 Unilateral primary osteoarthritis, left knee (principal); Z79.82 Long term (current) use of aspirin
CPT/HCPCS: 27446; 36415; 73560; 85025; 93005; 97110; 97161; 97165; A9270; C1713; C1776; J0171; J0690; J1100; J1170; J1885; J2250; J2270; J2405; J2704; J2795; J3010; J7120

== ENCOUNTER 2023-06-25 13:57 | Outpatient (CLI) | payer MEDICARE, SELFPAY ==
--- NOTE | ~2023-06-25 | XR_ITS ---
EXAM: XR knee LT min 4V DATE: 06/25/2023 14:16 HISTORY: Z47.1 - FOLLOW UP LT KNEE REPLACEMENT X 6WKS . COMPARISON: 05/07/2023. FINDINGS: Normal mineralization. Uncomplicated appearing medial compartment hemiarthroplasty hardwar e. Small left knee joint effusion No fracture or dislocation. No lytic or blastic lesion. Joint space s are maintained. No erosion or periosteal change. Anterior soft tissue swelling prominently anterior to the patellar tendon. IMPRESSION: No radiographic evidence of hardware related complication. Small joint effusion. Anterior soft tissue swelling. Reviewed, dictated and finalized at location K. IMPRESSION: No radiographic evidence of hardware related complication. Small kaela int effusion. Anterior soft tissue swelling.
== END 2023-06-25 13:58 | disposition home or self-care (01) ==
LOC: ANHIMG 13:58
PROVIDERS: PCP Family Medicine; Visit Provider Orthopaedic Surgery
DX: Z47.1 Aftercare following joint replacement surgery (principal)
CPT/HCPCS: 73564

== ENCOUNTER 2024-06-09 11:40 | Outpatient (CLI) | payer MEDICARE, SELFPAY ==
--- NOTE | ~2024-06-09 | XR_ITS ---
Right wrist Technique: PA, oblique, lateral, and ulnar deviation views were obtained. Clinical History: Pain Findings: No acute fracture seen. There is widening of the scapholunate interval and proximal migrati on of the capitate, compatible underlying scapholunate ligament tear. There is severe degenerative ch robson of the first CMC joint. There is mild degenerative change of the triscaphe joint. There is mild degenerative change at the radial scaphoid articulation. Soft tissues are unremarkable. 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 Reviewed, dictated and finalized at location M. 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 This i s related to underlying scapholunate ligament tear.
--- NOTE | ~2024-06-09 | XR_ITS ---
Clinical Indication: Cough PA and lateral views of the chest: Comparison: 01/16/2022 Findings: There is a 19 mm nodular opacity at the lateral right midlung. Left lung clear. Cardiomedi astinal silhouette is within normal limits. Bones and soft tissues are unremarkable. Impression: 19 mm probable lateral right midlung nodule. Chest CT recommended to further evaluate for possible ne oplasm. Reviewed, dictated and finalized at location . Impression: 19 mm probable lateral right midlung nodule. Chest CT recommended to further ev aluate for possible neoplasm.
--- OUTSIDE RECORDS SUMMARY | 2024-06-09 12:26 | XMS_ITS | Clinical Summary ---
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 Gender Identity Not on file Sexual Orientation Not on file Plan of Treatment Health Maintenance Due Date Last Done Comments Colorectal Cancer Screening Colonoscopy (10 Years) 1949 Hepatitis C 1967 DTaP, Tdap and Td Vaccines ( 1 - Tdap) 1968 Zoster Vaccines (1 of 2) 1999 Annual Medicare Wellness Visit 2014 Pneumococcal Vaccine: 65+ Ye ars (1 of 1 - PCV) 2014 COVID-19 Vaccine (2 - 2023-2 5 season) 2023 04/12/2020 RSV Immunization or 60+ Years (1 - 1-dose 75+ series) 2024 Meningococcal B Vaccine Aged Out No l onger eligible based on patient's age to complete this topic Meningococcal Vaccine Aged Out No betina gisela eligible based on patient's age to complete this topic RSV Immunizations Under 20 Months Aged Out No longer eligible based on patient's age to complete this topic Insurance [facility] Care Teams Mulcher Operator Relationship Specialty Start Date End Date Kayode Spence MD [address] [address] PCP - General FAMILY PRACTICE 04/25/20
== END 2024-06-09 11:41 | disposition home or self-care (01) ==
PROVIDERS: PCP Family Medicine; Visit Provider Family Medicine
DX: R05.3 Chronic cough (principal); M25.531 Pain in right wrist
CPT/HCPCS: 71046; 73110

== ENCOUNTER 2024-06-24 12:34 | Outpatient (CLI) | payer MEDICARE, SELFPAY ==
--- NOTE | ~2024-06-24 | CT_ITS ---
CT Scan of the Chest without Contrast: Clinical Indication: Pulmonary nodule Technique: Contiguous sections were acquired throughout the chest without intravenous contrast. Dose reduction technique was used on this scan by utilizing automated exposure control and iterative recon struction technique. The dose-length product (DLP) was 102.83 mGy-cm. Findings: There is no evidence of any significant mediastinal, hilar or axillary lymphadenopathy. The mediastin al soft tissues appear normal. There is no evidence of pleural or pericardial effusion. There is mild biapical scarring. 4 mm right apical pulmonary nodule present (image 25). 2.2 x 1.3 cm irregular pulmonary nodule present in the right middle lobe (axial image 78). 6 mm right lower lobe p ulmonary nodule present (axial image 98). Images through the upper abdomen reveal no abnormalities. Impression: 2.2 cm right middle lobe pulmonary nodule. Neoplastic lesion is a consideration. Tissue sampling raymond mmended to establish histologic diagnosis. Alternately, short-term follow-up CT in 1 month could be c onsidered after any appropriate interval therapy for possibility of pneumonia. Additional subcentimeter pulmonary nodules, as above. Follow-up exam in 6 months advised. Reviewed, dictated and finalized at location M. Impression: 2.2 cm right middle lobe pulmonary nodule. Neoplastic lesion is a consideration . Tissue sampling recommended to establish histologic diagnosis. Alternately, s hort-term follow-up CT in 1 month could be considered after any appropriate int erval therapy for possibility of pneumonia. Additional subcentimeter pulmonary nodules, as above. Follow-up exam in 6 month s advised.
--- OUTSIDE RECORDS SUMMARY | 2024-06-24 12:39 | XMS_ITS | Clinical Summary ---
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 Gender Identity Not on file Sexual Orientation Not on file Plan of Treatment Health Maintenance Due Date Last Done Comments Colorectal Cancer Screening Colonoscopy (10 Years) 1949 Hepatitis C 1967 DTaP, Tdap and Td Vaccines ( 1 - Tdap) 1968 Zoster Vaccines (1 of 2) 1999 Annual Medicare Wellness Visit 2014 Pneumococcal Vaccine: 50+ Ye ars (1 of 1 - PCV) [...] patient's age to complete this topic Insurance [facility] Care Teams Product Manager Relationship Specialty Start Date End Date Kayode Spence MD [address] [place] [address] PCP - General FAMILY PRACTICE 04/25/20
== END 2024-06-24 12:35 | disposition home or self-care (01) ==
PROVIDERS: PCP Family Medicine; Visit Provider Family Medicine
DX: R91.8 Other nonspecific abnormal finding of lung field (principal)
CPT/HCPCS: 71250

== ENCOUNTER 2024-07-21 08:52 | Outpatient (CLI) | payer MEDICARE, SELFPAY ==
[2024-07-18 12:42] VITALS: BMI 23.1
--- NOTE | 2024-07-18 12:46 | PC.NURSE ---
Pre Radiology instructions [facility] __07/[facility]___ at time ___9:00AM____ for procedure Time: __11:00AM__ YOU MAY BE MONITORED AT HOSPITAL FOR UP TO 4 HOURS AFTER YOUR PROCEDURE. A visitor will be allowed to accompany the patient into the hospital. You and your visitor will be asked to self-screen and do not enter if you have any COVID symptoms. A mask is OPTIONAL within the hospital. Patients are to have no food or drink 6 hours prior to procedure time Driving will be restricted after the procedure, you must have a person to drive you home. Labs will be drawn in preop area and once reviewed, you will be taken to radiology area for procedure. When the procedure is completed, you will be taken to outpatient where you will be monitored for several hours. You may have one visitor in this area. Other than holding anti-coagulants, patient may take other medication(s) as scheduled. Prior to your appointment date patients are instructed to hold anti-coagulants after discussing with ordering provider to stop. If unable to discontinue anti-coagulants please notify radiologist. No aspirin or warfarin (Coumadin) for 7 days prior to the procedure. No clopidogrel (Plavix), ticagrelor (Brilinta), prasugrel (Effient) or dabigatran (Pradaxa) for 5 days prior to the procedure. No rivaroxaban (Xarelto), apixaban (Eliquis), dipyridamole (Aggrenox or Persantine) or cilostazol (Pletal) for 2 days prior to the procedure. Medications to discontinue per physician: ___NONE Date to take last dose: Please leave all valuables, including medications, at home the day of procedure. The hospital will not accept responsibility for valuables. Wear comfortable, loose fitting clothing. Follow any additional instructions given to you from ordering provider. Telephone instructions given to ____PATIENT and asked if any additional questions and then verbalized understanding. Patient advised to call scheduling provider office or registration scheduling [phone] if any additional questions.
[2024-07-21] VITALS (11 sets, daily range): BP systolic 112–141; BP diastolic 49–69; PULSE 66–89; RESP 16; TEMP 36.7; O2SAT 96–98; BMI 23.1
--- NOTE | ~2024-07-21 | CT_ITS ---
EXAMINATION: CT biopsy lung w/imaging DATE: 07/21/2024 12:02 INDICATION: Solitary pulmonary nodule. TECHNIQUE: The procedure including the risks and benefits was discussed with the patient. Risks discu ssed included infection, approximately 1/20 risk of symptomatic hemorrhage beyond mild hemoptysis, ap proximately 1/3 risk of pneumothorax, and approximately 1/10 risk of pneumothorax severe enough to wa rrant chest tube placement. The patient understood the risks and agreed to proceed. The patient was p laced in the left lateral decubitus position. The skin overlying the lateral right chest was prepped and draped in sterile fashion. Anesthetic was administered with 1% lidocaine subcutaneously. A 19 gauge outer needle was advanced under CT guidance to the lesion of interest. A 20 gauge core biopsy n eedle was then used to obtain 3 core biopsy specimens. The needle was removed and the entry site was cleaned and dressed. There were no immediate complications. The dose-length product was 123.37 mGy-c m. FINDINGS: CT images demonstrate the outer needle tip adjacent to a 2.1 x 1.6 cm spiculated nodule of concern in the right middle lobe. There is a minimal amount of pulmonary hemorrhage along side the op posite of the nodule from the biopsy needle. There is a small pneumothorax on the final images which remain stable on follow-up radiographs over 3 hours. IMPRESSION: 1. Successful CT-guided biopsy of a 2.1 x 1.6 cm spiculated right middle lobe nodule.. Reviewed, dictated and finalized at location A. IMPRESSION: 1. Successful CT-guided biopsy of a 2.1 x 1.6 cm spiculated right middle lobe n odule..
--- NOTE | ~2024-07-21 | XR_ITS ---
EXAMINATION: XR chest 1V portable DATE: 07/21/2024 12:44 INDICATION: Status post percutaneous right lung biopsy TECHNIQUE: frontal view of the chest was obtained. COMPARISON: 07/21/2024 at 11:40 AM FINDINGS: No interval change in a small right apical pneumothorax. Unchanged nodular opacity projecting over th e lateral right midlung zone. No new airspace opacities, pulmonary edema, pleural effusion or left-si ded pneumothorax. The cardiomediastinal silhouette is normal. IMPRESSION: 1. Unchanged small right apical pneumothorax post percutaneous biopsy of a right middle lobe nodule w hich is concerning for primary bronchogenic carcinoma. Reviewed, dictated and finalized at location A. IMPRESSION: 1. Unchanged small right apical pneumothorax post percutaneous biopsy of a righ t middle lobe nodule which is concerning for primary bronchogenic carcinoma.
--- NOTE | ~2024-07-21 | XR_ITS ---
XR chest 1V portable 07/21/2024 14:44 Indication: Post right lung biopsy Procedure: AP portable chest Comparison: 06/09/2024 Findings: Heart size normal. Left lung clear. Stable small right apical pneumothorax. Stable appearan ce to pulmonary nodule right mid thorax laterally. No acute focal pneumonia or edema. Impression: 1: Stable small right pneumothorax. Reviewed, dictated and finalized at location A. Impression: 1: Stable small right pneumothorax.
--- NOTE | ~2024-07-21 | XR_ITS ---
EXAMINATION: XR chest 1V DATE: 07/21/2024 11:42 INDICATION: Status post percutaneous right lung biopsy TECHNIQUE: frontal view of the chest was obtained. COMPARISON: Chest radiograph dated 06/09/[address] dated 06/24/2024 FINDINGS: Small right apical pneumothorax. Nodular opacity lateral right midlung zone. Symmetric nipple shadows project over the lateral aspect of the bilateral lower lungs. No pleural effusion or left-sided pneu mothorax. Cardiomediastinal silhouette is normal. IMPRESSION: 1. Small right apical pneumothorax post percutaneous biopsy of a right middle lobe nodule at the late ral right midlung zone which is concerning for primary bronchogenic carcinoma. Reviewed, dictated and finalized at location A. IMPRESSION: 1. Small right apical pneumothorax post percutaneous biopsy of a right middle l obe nodule at the lateral right midlung zone which is concerning for primary br onchogenic carcinoma.
--- OUTSIDE RECORDS SUMMARY | 2024-07-21 08:56 | XMS_ITS | Clinical Summary ---
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 Gender Identity Not on file Sexual Orientation Not on file Plan of Treatment Health Maintenance Due Date Last Done Comments Colorectal Cancer Screening Colonoscopy (10 Years) 1949 Hepatitis C 1967 DTaP, Tdap and Td Vaccines ( 1 - Tdap) 1968 Pneumococcal Vaccine: 50+ Ye ars (1 of 1 - PCV) 1999 Zoster Vaccines (1 of 2) 1999 Annual Medicare Wellness Visit 2014 COVID-19 Vaccine (2 - 2023-2 5 [...] patient's age to complete this topic Insurance [facility] Care Teams Rn Clinical Coordinator Relationship Specialty Start Date End Date Kayode Spence MD [address] [address] PCP - General FAMILY PRACTICE 04/25/20
[2024-07-21 09:42] LABS: Mean Platelet Volume 9.2 fl (7.4-10.4); Platelet Count Result 224 k/mm3 (150-375)
[2024-07-21 09:53] LABS: Prothrombin Time 13.7 Seconds (11.1-14.7)
== END 2024-07-21 15:30 | disposition home or self-care (01) ==
PROVIDERS: PCP Family Medicine; Visit Provider Radiology Diagnostic Radiology
PROC: BB24ZZZ Computerized Tomography (CT Scan) of Bilateral Lungs (ICD-10-PCS; CPT 32408; principal; 2024-07-21 11:00)
DX: R91.1 Solitary pulmonary nodule (principal)
CPT/HCPCS: 32408; 36415; 71045; 85049; 85610; 88305; 88342

== ENCOUNTER 2024-08-08 13:02 | Outpatient (CLI) | payer MEDICARE, SELFPAY ==
--- NOTE | ~2024-08-08 | CT_ITS ---
CT of the Abdomen and Pelvis: Indication: Renal mass Technique: 2.5 mm axial scans were obtained through the abdomen and pelvis prior to and following in travenous administration of 100 cc of Omnipaque 350. Dose reduction technique was used on this scan b y utilizing automated exposure control and iterative reconstruction technique. The dose-length produc t (DLP) was 735.26 mGy-cm. Findings: Scans through the lung bases demonstrate 2.2 cm irregular right middle lobe nodule (axial image 1). Additional subcentimeter peripheral right lower lobe nodules are unchanged from prior chest CT. The liver, spleen, pancreas, gallbladder, adrenals and kidneys are within normal limits. No evidence of aortic aneurysm. No lymphadenopathy. No bowel obstruction or bowel wall thickening. There is no evidence to suggest acute appendicitis. Images through the pelvis were performed. Urinary bladder unremarkable. Prostate gland is enlarged. N o ascites. Impression: No renal mass identified. 2.2 cm irregular right middle lobe nodule, indeterminate. Correlate with recent biopsy results. Enlarged prostate gland. Reviewed, dictated and finalized at location . Impression: No renal mass identified. 2.2 cm irregular right middle lobe nodule, indeterminate. Correlate with recent biopsy results. Enlarged prostate gland.
--- OUTSIDE RECORDS SUMMARY | 2024-08-08 13:13 | XMS_ITS | Clinical Summary ---
Author Organization [facility] Address [address] [place] [address] Care Team Providers Care Biomass Technician Name Role Phone Unavailable Primary Care Provider Unavailabl e Source Comments [facility],non-owned Affiliates and Associated Physician Practices is amultiple site organization consisting of ambulatory clinics and hospital sitesin [place], [place], [place] and [place]. This disclosure is being madepursuant to the Care Everywhere program and may not contain all information available regarding this patient. 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 Gender Identity Not on file Sexual Orientation Not on file Plan of Treatment Health Maintenance Due Date Last Done Comments COLOGUARD (AGES 45-75) - COL ON CA SCREENING 1949 COLON MONITORING 1949 COLONOSCOPY - COLON CA SCREENING 1949 CT COLONOGRAPHY - COLON CA SCREENING 1949 Colorectal Cancer Screening 1949 FIT - COLON CA SCREENING 1949 FLEX SIG - COLON CA SCREENING 1949 LIPID TESTING 1949 HEPATITIS C SCREENING 03/11/1967 DTAP/TDAP/TD VACCINES (1 - Tdap) 1968 PNEUMOCOCCAL VACCINE 50+ (1 of 1 - PCV) 1999 ZOSTER VACCINE (1 of 2) 1999 COVID-19 VACCINE (1 - 2023-2 5 season) 2023 DEPRESSION SCREENING 03/09/2024 MEDICARE AWV CALENDAR YEAR 2024 Respiratory Syncytial Virus (RSV) Vaccine Pt: or over 60 yrs (1 - 1-dose 75+ series) 2024 INFLUENZA VACCINE (Season Ended) 2024 HEPATITIS B VACCINE Aged Out No longe r eligible based on patient's age to complete this topic HIB VACCINE Aged Out No longer eligi ble based on patient's age to complete this topic HPV VACCINE Aged Out No longer eligi ble based on patient's age to complete this topic MENINGOCOCCAL (Group B) VACC INE SHARED DECISION-MAKING Aged Out No longer eligibl e based on patient's age to complete this topic MENINGOCOCCAL GROUPS A/C/Y/W VACCINE Aged Out No longer eligible b ased on patient's age to complete this topic Procedures Procedure Name Priority Date/Time Associated Diagnosis Comments PATHOLOGY TISSUE Routine 07/21/2024 12:1 5 PM CDT Illness, unspecified from Last 3 Months Results * PATHOLOGY TISSUE (07/21/2024 12:15 PM CDT) Case Report Surgical Pathology Report Case: [id number] Authorizing Provider: Chuy Johns MD Collected: 07/21/2024 12:15 PM Ordering Location: [facility] - Received: 07/26/2024 04:32 PM Pathology Lab Pathologist: Tabitha Marin MD Specimen: Lung, right lobe, Right Lung Biopsy 07/27/2024 3:36 PM CDT [facility] Final Diagnosis Lung, right middle lobe, biopsy ([id number], 07/21/24): - Carcinoma, 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 There is an associated dense lymphoid infiltrate. This infiltrate shows a mixture of CD20 positive B cells and CD3 positive T cells consistent with reactive inflammation. The hyperchromatic epithelioid cells are strongly positive for CAM 5.2 and nuclear PAX8. They are negative for NKX3.1, MCK, CK7, CK20, Napsin A, CD68, S100, CDX2, chromogranin, AMACR, p63 and TTF-1. PAX8 positivity can be seen in renal and thyroid neoplasms; however, the negative TTF and morphology is most suggestive of renal carcinoma. 07/27/2024 3:36 PM [facility] Clinical History The patient is a 74-year-old man with a 2.1 cm spiculated right middle lobe nodule. 07/27/2024 3:36 PM [facility] Materials Received Received are 19 slide(s) and 1 block(s) labeled [id number] along with a copy of the outside pathology report. [place] [address]. All original materials are returned to the referring institution, along with a copy of our final report. 07/27/2024 3:36 PM [facility] Pathologist Location at [facility] 07/27/2024 3:36 PM [facility] Disclaimer The performance characteristics of all immunohistochemical and indirect immunofluorescence stains (if any) cited in this report were determined by the Histopathology Laboratory of [facility]. Some of these tests were developed by our own laboratory and have not been cleared or approved by the US Food and Drug Administration. The FDA does not require this test to go through premarket FDA review. These tests are used for clinical purposes. They should not be regarded as investigational or for research. This laboratory is certified under the Clinical Laboratory Improvement Amendments (CLIA) as qualified to perform high complexity clinical laboratory testing. This case has been personally reviewed and interpreted by the attending (teaching) pathologist. 07/27/2024 3:36 PM [facility] Embedded Images 07/27/2024 3:36 PM [facility] Pathology/Cytolo gy (Lung, right lobe) 07/21/2024 12:15 PM CDT 07/26/2024 4:32 PM CDT Chuy Johns MD LAB - PATHOLOGY/CYTOLOGY ORDERAB LES Final Result [facility] [address] [place] [address], [facility] [phone] from Last 3 Months Insurance [facility] MANAGED MEDICARE ADV [facility] MANAGED MEDICARE ADV SELF PAY NO INSURANCE Member Subscriber Plan / Payer (Ef fective for All Dates) Name:Tessa Shook Member ID:Not on file Relation to Subscriber:Not on file Name:TESSA SHOOK Subscriber ID:Not on file (Home) Address: [address] [place] [id number] Payer ID:Not on file Group ID:Not on file Type:Self Pay Address: [place], [place]
--- OUTSIDE RECORDS SUMMARY | 2024-08-08 13:13 | XMS_ITS | Encounter Summary ---
Author Organization [facility] Address [address] [place] [address] Care Team Providers Care Crisis Manager Name Role Phone Unavailable Primary Care Provider Unavailabl e Encounter Details Date Type Department Care Team (Late st Contact Info) Description 07/26/2024 Lab Requisition [facility] - Pathology Lab [address] [place] [address] Chuy Johns MD [address] [address] Illness, unspecified Social History Tobacco Use Types Packs/Day Years Used Date Smoking Tobacco: Never Assessed Sex and Gender Information Value Date Recorded Sex Assigned at Not on file 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 Gender Identity Not on file Sexual Orientation Not on file documented as of this encounter Plan of Treatment Not on file documented as of this encounter Procedures Procedure Name Priority Date/Time Associated Diagnosis Comments PATHOLOGY TISSUE Routine 07/21/2024 12:1 5 PM CDT Illness, unspecified documented in this encounter Results * PATHOLOGY TISSUE (07/21/2024 12:15 PM CDT) Case Report Surgical Pathology Report Case: [id number] Authorizing Provider: Chuy Johns MD Collected: 07/21/2024 12:15 PM Ordering Location: [facility] - Received: 07/26/2024 04:32 PM Pathology Lab Pathologist: Tabitha Marin MD Specimen: Lung, right lobe, Right Lung Biopsy 07/27/2024 3:36 PM CDT [facility] Final Diagnosis Lung, right middle lobe, biopsy ([id number], 07/21/24): - Carcinoma, 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 07/27/2024 3:36 PM [facility] Clinical History The patient is a 74-year-old man with a 2.1 cm spiculated right middle lobe nodule. 07/27/2024 3:36 PM [facility] Materials Received Received are 19 slide(s) and 1 block(s) labeled [id number] along with a copy of the outside pathology report[place] [address]. All original materials are returned to the referring institution, along with a copy of our final report. 07/27/2024 3:36 PM [facility] Pathologist Location at [facility] 07/27/2024 3:36 PM [facility] Disclaimer The performance characteristics of all immunohistochemical and indirect immunofluorescence stains (if any) cited in this report were determined by the Histopathology Laboratory of [facility]. Some of these tests were developed by [...] the attending (teaching) pathologist. 07/27/2024 3:36 PM CDT [facility] Embedded Images 07/27/2024 3:36 PM CDT [facility] Pathology/Cytolo gy (Lung, right lobe) 07/21/2024 12:15 PM CDT 07/26/2024 4:32 PM CDT us Chuy Johns MD LAB - PATHOLOGY/CYTOLOGY ORDERAB LES Final Result [facility] LAB [address] [place] [address], [facility] [phone] documented in this encounter Visit Diagnoses Diagnosis Illness, unspecified documented in this encounter
--- OUTSIDE RECORDS SUMMARY | 2024-08-08 13:13 | XMS_ITS | Encounter Summary ---
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 Role Phone Unavailable Primary Care Provider Unavailabl e Encounter Details Date Type Department Care Team (Late st Contact Info) Description 07/25/2024 Lab Requisition [facility] - Pathology Lab [address] [place] [address] John Paul Lovett MD [address] [place] [address] Illness, unspecified Social History Tobacco Use Types Packs/Day Years Used Date Smoking Tobacco: Never Assessed Sex and Gender Information Value Date Recorded Sex Assigned at Not on file 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
[2024-08-08 13:26] LABS: Estimated Glomerular Filt Rate > 60
== END 2024-08-08 13:03 | disposition home or self-care (01) ==
PROVIDERS: PCP Family Medicine; Visit Provider Urology
DX: N28.89 Other specified disorders of kidney and ureter (principal); N40.0 Benign prostatic hyperplasia without lower urinary tract symptoms; R91.1 Solitary pulmonary nodule
CPT/HCPCS: 74178; Q9967